=== PATIENT | female | born 1995 | race Caucasian/White ===

== ENCOUNTER 2020-09-26 03:49 | Emergency (ER) | payer OTHER ==
[~2020-09-26] VITALS: Ht 152.4 cm; Wt 79.4 kg
[2020-09-26 05:00] VITALS: BP 136/72
[2020-09-26 05:51] LABS: Hepatitis B Surface Antibody Positive
[2020-09-26 06:12] LABS: Hepatitis B Surface Antigen Negative (Negative)
== END 2020-09-26 05:38 | disposition home or self-care (01) ==
LOC: ER 03:51 → EEVIPCON 03:51 → ER 05:38
DX: Z04.2 Encounter for examination and observation following work accident (principal); Z77.21 Contact with and (suspected) exposure to potentially hazardous body fluids
CPT/HCPCS: 36415; 86703; 86706; 86803; 87340